=== PATIENT | female | born 1960 | race Hispanic/Latino ===

== ENCOUNTER 2018-11-09 00:52 | Emergency (ER) | payer OTHER ==
[2018-11-09] MEDS ORDERED: ONDANSETRON ODT 4 MG TAB ONE (03:18)
[2018-11-09] MEDS ORDERED: HYDROCODONE/ACETAMINOPHEN 10/325 MG TAB ONE (03:19)
== END 2018-11-09 04:33 | disposition home or self-care (01) ==
LOC: EDH 00:52
DX: S00.83XA Contusion of other part of head, initial encounter (principal); S70.02XA Contusion of left hip, initial encounter; S80.12XA Contusion of left lower leg, initial encounter; Z90.49 Acquired absence of other specified parts of digestive tract; Z90.710 Acquired absence of both cervix and uterus; Z88.6 Allergy status to analgesic agent; W18.39XA Other fall on same level, initial encounter; Y93.01 Activity, walking, marching and hiking; Y92.89 Other specified places as the place of occurrence of the external cause; Y99.8 Other external cause status
CPT/HCPCS: 70450; 70486; 73502; 73552; 73590; 73600; 73630